=== PATIENT | female | born 1990 | race Two or more races ===

== ENCOUNTER 2017-04-06 18:58 | Emergency (ER) | payer OTHER ==
[~2017-04-06] VITALS: Ht 154.9 cm; Wt 81.6 kg
[2017-04-06] MEDS ORDERED: 0.9 % SODIUM CHLORIDE 10 ML DISP.SYRIN. IV PRN (19:15)
[2017-04-06] MEDS ORDERED: HYDROmorphone 2 MG/ML VIAL IV/SQ PRN (19:15)
--- NOTE | 2017-04-06 19:16 | PHYS DOC ---
Past Medical History Past Medical History: No Pertinent History Past Surgical History: Appendectomy Alcohol Use: None Drug Use: None Adult General Chief Complaint Chief Complaint: CHEST PAIN HPI HPI She is a pleasant 26-year-old otherwise healthy female with a 2 day history of chest pain. She describes the chest pain is intermittent in her left chest central chest with radiation to the left jaw and arm. Over the course of last 12 hours as got progressively worse and now constant all day. It does radiate to the again left jaw left shoulder and left arm is worse with taking deep breaths and movement of her left shoulder. She denies any trauma, fevers, chills , URI symptoms, cough, shortness of breath other than when moving her chest wall hurts. Patient has had similar symptoms in the past but no specific disease process was found a cause. Patient denies any travel outside the country , denies any other PE risk factors, denies any numbness and tingling to her chest only her left hand. Patient is on no medications of course. Patient has no history of surgeries recently. She has no complaint of lower extremity edema or pain. 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 She denies any sick contacts at home. The chest pain and now is 8 of 10 constant with no nausea no, no vomiting, no diarrhea, no rash or change in skin color. Differential diagnosis for chest pain: Pericarditis, myocarditis, endocarditis, pneumothorax, pneumonia, aortic dissection, esophageal spasm, esophagitis, peptic ulcer disease, acute coronary syndrome, mediastinitis, Boerhaave syndrome , musculoskeletal chest wall pain, costochondritis, intercostal strain, rib fracture, pulmonary contusion, pneumonitis, pleural effusion, pericardial effusion, pericardial tamponode, and pleurisy. Arrival read by me 1903 on April 06, 2017 demonstrates a P every QRS this is sinus rhythm with a heart rate of 76. IA interval of 146 which is normal, QRS of 80 which is normal, QTC of 425. Patient has a T-wave abnormality in the anterior leads V1 which may be a normal variant. She also has a nonspecific T- wave inversion in lead [address] segment T-wave changes consistent with acute cardiac ischemia. Review of Systems Review of Systems Constitutional: Denies fever or chills [] Eyes: Denies change in visual acuity, redness, or eye pain [] HENT: Denies nasal congestion or sore throat [] Respiratory: Denies cough or shortness of breath [] Cardiovascular: No additional information not addressed in HPI [] GI: Denies abdominal pain, nausea, vomiting, bloody stools or diarrhea [] : Denies dysuria or hematuria [] Musculoskeletal: Denies back pain or joint pain [] Integument: Denies rash or skin lesions [] Neurologic: Denies headache, focal weakness she does complain of some tingling to her left hand with the chest pains. Endocrine: Denies polyuria or polydipsia [] All other systems were reviewed and found to be within normal limits, except as documented in this note. Current Medications Current Medications Current Medications Medications (Trade) Dose Ordered Sig/Leilani Start Time Stop Time Status Last Admin Dose Admin Aspirin (Children'S Aspirin) 324 mg 1X ONCE 04/06/17 19:45 04/06/17 19:46 DC Hydromorphone HCl (Dilaudid) 1 mg PRN Q15MIN PRN 04/06/17 19:15 04/07/17 19:14 Lorazepam (Ativan) 1 mg 1X ONCE 04/06/17 19:45 04/06/17 19:46 DC Sodium Chloride (Normal Saline Flush) 10 ml QSHIFT PRN 04/06/17 19:15 Allergies Allergies Allergies Coded Allergies Type Severity Reaction Last Updated Verified No Known Drug Allergies 10/26/14 No Physical Exam Physical Exam Constitutional: Well developed, well nourished, patient is uncomfortable laying flat having difficulty breathing secondary to pain in her chest wall. HENT: Normocephalic, atraumatic, bilateral external ears normal, oropharynx moist, no oral exudates, nose normal. [] Eyes: PERRLA, EOMI, conjunctiva normal, no discharge. [] Neck: Normal range of motion, no tenderness, supple, no stridor. [] Cardiovascular:Heart rate regular rhythm, no murmur []a she has chest wall tenderness to palpation is reproducible on exam. She has no obvious signs of trauma, no rash no changes in skin composition or color. Lungs & Thorax: Bilateral breath sounds clear to auscultation [] Abdomen: Bowel sounds normal, soft, no tenderness, no masses, no pulsatile masses. [] Skin: Warm, dry, no erythema, no rash. [] Back: No tenderness, no CVA tenderness. [] Extremities: No tenderness, no cyanosis, no clubbing, ROM intact, no edema. [] Neurologic: Alert and oriented X 3, normal motor function, normal sensory function, no focal deficits noted. [] Psychologic: She is very anxious but is normal judgment normal affect.[] Current Patient Data Vital Signs Vital Signs Date Time Temp Pulse Resp B/P (MAP) Pulse Ox O2 Delivery O2 Flow Rate FiO2 04/06/17 19:12 98.5 77 20 107/61 (76) 100 Room Air 98.5 Lab Values Laboratory Tests Test 04/06/17 19:20 04/06/17 19:27 04/06/17 19:33 White Blood Count 10.7 x10^3/uL (4.0-11.0) Red Blood Count 4.45 x10^6/uL (3.50-5.40) Hemoglobin 13.2 g/dL (12.0-15.5) Hematocrit 39.2 % (36.0-47.0) Mean Corpuscular Volume 88 fL (79-100) Mean Corpuscular Hemoglobin 30 pg (25-35) Mean Corpuscular Hemoglobin Concent 34 g/dL (31-37) Red Cell Distribution Width 12.9 % (11.5-14.5) Platelet Count 282 x10^3/uL (140-400) Neutrophils (%) (Auto) 60 % (31-73) Lymphocytes (%) (Auto) 29 % (24-48) Monocytes (%) (Auto) 7 % (0-9) Eosinophils (%) (Auto) 4 % (0-3) H Basophils (%) (Auto) 1 % (0-3) Neutrophils # (Auto) 6.4 x10^3uL (1.8-7.7) Lymphocytes # (Auto) 3.1 x10^3/uL (1.0-4.8) Monocytes # (Auto) 0.7 x10^3/uL (0.0-1.1) Eosinophils # (Auto) 0.4 x10^3/uL (0.0-0.7) Basophils # (Auto) 0.1 x10^3/uL (0.0-0.2) Sodium Level 139 mmol/L (136-145) Potassium Level 4.0 mmol/L (3.5-5.1) Chloride Level 105 mmol/L (98-107) Carbon Dioxide Level 26 mmol/L (21-32) Anion Gap 8 (6-14) Blood Urea Nitrogen 19 mg/dL (7-20) Creatinine 0.9 mg/dL (0.6-1.0) Estimated GFR (Cockcroft-Gault) 75.1 Glucose Level 98 mg/dL (70-99) Calcium Level 8.8 mg/dL (8.5-10.1) Magnesium Level 1.8 mg/dL (1.8-2.4) Total Bilirubin 0.4 mg/dL (0.2-1.0) Direct Bilirubin 0.1 mg/dL (0.0-0.2) Aspartate Amino Transferase (AST) 22 U/L (15-37) Alanine Aminotransferase (ALT) 33 U/L (14-59) Alkaline Phosphatase 78 U/L (46-116) Creatine Kinase 124 U/L (26-192) Creatine Kinase MB (Mass) 0.7 ng/mL (0.0-3.6) Creatine Kinase MB Relative Index 0.6 % (0-4) Troponin I Quantitative < 0.017 ng/mL (0.000-0.055) KA-Yca-E-Type Natriuretic Peptide 36 pg/mL (0-124) Total Protein 7.8 g/dL (6.4-8.2) Albumin 3.6 g/dL (3.4-5.0) Lipase 124 U/L (73-393) Thyroid Stimulating Hormone (TSH) 2.779 uIU/mL (0.358-3.74) Urine Collection Type Clean catch Urine Color Yellow Urine Clarity Cloudy Urine pH 6.5 Urine Specific [place] 1.020 Urine Protein Negative mg/dL (NEG-TRACE) Urine Glucose (UA) Negative mg/dL (NEG) Urine Ketones (Stick) Negative mg/dL (NEG) Urine Blood Negative (NEG) Urine Nitrite Negative (NEG) Urine Bilirubin Negative (NEG) Urine Urobilinogen Dipstick 1.0 mg/dL (0.2 mg/dL) Urine Leukocyte Esterase Small (NEG) Urine RBC Occ /HPF (0-2) Urine WBC 1-4 /HPF (0-4) Urine Squamous Epithelial Cells Mod /LPF Urine Bacteria Few /HPF (0-FEW) Urine Mucus Slight /LPF POC Urine HCG, Qualitative Hcg negative (Negative) Laboratory Tests 04/06/17 19:20 Laboratory Tests 04/06/17 19:20 EKG EKG [] Radiology/Procedures Radiology/Procedures []Is single view chest x-ray completed at 7:34 PM read by me 04/06/2017 demonstrates no acute cardiopulmonary infiltrate, no cardiomegaly, no evidence of pneumothorax, no pneumonia, no pneumo mediastinum, no evidence of fractured rib. Course & Med Decision Making Course & Med Decision Making Pertinent Labs and Imaging studies reviewed. (See chart for details) []Patient presents with continuous chest wall pain for the last 24 hours.Differential diagnosis for chest pain: Pericarditis, myocarditis, endocarditis, pneumothorax, pneumonia, aortic dissection, esophageal spasm, esophagitis, peptic ulcer disease, acute coronary syndrome, mediastinitis, Boerhaave syndrome, musculoskeletal chest wall pain, costochondritis, intercostal strain, rib fracture, pulmonary contusion, pneumonitis, pleural effusion, pericardial effusion, pericardial tamponode, and pleurisy. Concert upon arrival Criteria: Age < than 50 years Heart rate < 100 Oxygen saturation > 95% No hemoptysis No estrogen use No prior DVT or PE No unilateral leg swelling No surgery or trauma requiring hospitalization within the prior 4 weeks Based on these findings patient has no risk for pulmonary embolism we will set up for a d-dimer as she is low risk a negative d-dimer and negative per her score essentially rule out the presence of PE. The interim patient be given aspirin, fluids antiemetics and pain meds as well as a thorough screening for other causes of cardiac injury. And chest pain Patient's CBC, troponin, proBNP, no evidence of metabolic panel, are all within normal limits, as is lipase is normal, patient's d-dimer is less than 0.28 which is below normal limits. Patient's chest x-ray is normal according to me as well as a EKG that does not demonstrate any acute coronary ischemia. Given duration of symptoms I'm comfortable sending the patient is low risk History: As calculated at the end of the patient's evaluation and she still score is about a 0. We've that she is low risk and be discharged home with follow-up with PCP and referral to cardiology as an outpatient to get risk stratification completed Highly suspicious 2 points moderately suspicious 1. slightly suspicious 0 point EKG: ST segment depression 2. nonspecific repolarization disturbance 1. normal 0 point Age: Greater than 65 2 points, 65-45 1., less than 45 years old 0 points Risk factors:> 3 risk factors 2 points, 1-2 risk factors one point, no risk factors 0 point Troponin: > 2 times normal 2 points, 1-2 times normal 1., normal limits 0 point Total score: Score % pts MACE/n MACE Policy 0-3 32% 1.9% 0.05% Discharge 4-6 51% 413/3136 13% 1.3% Observation Risk management 7-10 17% 518/[id number] 50% 2.8% Observation Treatment, CAG Dragon Disclaimer Dragon Disclaimer This electronic medical record was generated, in whole or in part, using a voice recognition dictation system. Departure Departure Impression: Primary Impression: Chest pain in adult Disposition: 01 HOME, SELF-CARE Condition: IMPROVED Referrals: KAY COLON MD (PCP) Patient Instructions: Chest Pain (Nonspecific) Additional Instructions: My discharge plan Although you have low risk chest pain you May still have heart disease despite having an apparent negative workup today. I would advise that you follow-up with your primary care doctor this week to arrange follow-up with her vice president of product marketing. The vice president of product marketing will help stratify your risk for heart injury in the future. Follow up: In addition patient is asked to followup with their primary doctor, within a week for followup examination and to address patient's ongoing medical conditions. Because patient does not have a regular medical doctor, the [facility] Resource Sheet will be provided to establish care primary care. Patient is advised that in the Emergency Department primary complaints are addressed and only in light of known signs and symptoms. Patient should return immediately to the emergency department if new signs and symptoms develop or patient's condition worsens in any way. At time of discharge patient was in stable condition and had verbalized understanding of the discharge instructions. Scripts Naproxen (NAPROSYN) 500 Mg Tablet 1 TAB PO BID, #14 TAB 1 Refill Prov: HIMANSHU WILKINSON MD 04/06/17 Hydrocodone Bit/Acetaminophen (HYDROCODONE-APAP 5-325 ) 1 Each Tablet 1-2 TAB PO PRN Q6HRS Y for PAIN for 5 Days, #10 TAB 0 Refills Prov: HIMANSHU WILKINSON MD 04/06/17 HIMANSHU WILKINSON MD Apr 06, 2017 19:16
[2017-04-06 19:26] LABS: BASO # 0.1 x10^3/uL (0.0-0.2); BASO % 1 % (0-3); EOS % 4 % (0-3); HEMATOCRIT 39.2 % (36.0-47.0); HEMOGLOBIN 13.2 g/dL (12.0-15.5); LYMPH # 3.1 x10^3/uL (1.0-4.8); LYMPH % 29 % (24-48); MEAN CORPUSCULAR HEMOGLOBIN 30 pg (25-35); MEAN CORPUSCULAR HGB CONC 34 g/dL (31-37); MEAN CORPUSCULAR VOLUME 88 fL (79-100); MONO % 7 % (0-9); NEUT % 60 % (31-73); PLATELET COUNT 282 x10^3/uL (140-400); RED BLOOD COUNT 4.45 x10^6/uL (3.50-5.40); RED CELL DISTRIBUTION WIDTH 12.9 % (11.5-14.5); WHITE BLOOD COUNT 10.7 x10^3/uL (4.0-11.0)
[2017-04-06 19:43] LABS: CALCIUM 8.8 mg/dL (8.5-10.1); CREATININE 0.9 mg/dL (0.6-1.0); GFR 75.1
[2017-04-06 19:44] LABS: BILIRUBIN,URINE NEGATIVE (NEG); GLUCOSE,URINE NEGATIVE (NEG); NITRITE,URINE NEGATIVE (NEG); PH,URINE 6.5; PROTEIN,URINE NEGATIVE (NEG-TRACE)
[2017-04-06] MEDS ORDERED: IV NORMAL SALINE 1000ML BAG 1,000 ML IV SCH (19:45)
[2017-04-06] MEDS ORDERED: ASPIRIN CHEWABLE 81 MG TABLET. PO ONE (19:45)
[2017-04-06 19:49] LABS: ALBUMIN 3.6 g/dL (3.4-5.0); DIRECT BILIRUBIN 0.1 mg/dL (0.0-0.2); MAGNESIUM 1.8 mg/dL (1.8-2.4); TOTAL BILIRUBIN 0.4 mg/dL (0.2-1.0); TOTAL PROTEIN 7.8 g/dL (6.4-8.2)
[2017-04-06 19:49] LABS: BACTERIA,URINE FEW /HPF (0-FEW); RBC,URINE OCC /HPF (0-2)
[2017-04-06 19:50] LABS: SQUAMOUS EPITHELIAL CELL,UR MOD /LPF
[2017-04-06 19:57] LABS: CKMB MASS 0.7 ng/mL (0.0-3.6)
[2017-04-06 20:00] VITALS: BP 128/79
[2017-04-06] MEDS ORDERED: HYDR-2758 PO (20:14)
[2017-04-06] MEDS ORDERED: NAPR-683 PO (20:14)
--- NOTE | 2017-04-07 06:30 | EKG ---
[facility] [address] [place] [address] Test Date: 2017-04-06 Test Time: 19:03:27 Pat Name: WILLA MACEDO Department: Room: Gender: F [employer] Specialist: : [id number] Requested By: HIMANSHU WILKINSON Order Number: [id number] Reading MD: Measurements Intervals [place] Rate: 76 P: 180 [place]: 146 QRS: 168 QRSD: 98 T: 153 QT: 374 QTc: 425 Interpretive Statements SINUS RHYTHM ABNORMAL RIGHT AXIS DEVIATION CONSIDER RIGHT VENTRICULAR HYPERTROPHY T ABNORMALITY IN HIGH LATERAL LEADS ABNORMAL ECG RI6.01 No previous ECG available for comparison
--- NOTE | 2017-04-07 08:35 | RAD ---
Portable chest, 04/06/2017: History: Chest pain Comparison is made to a study from 11/10/2011. The heart size and pulmonary vascularity are normal. The lungs are clear. There is no evidence of pleural fluid. IMPRESSION: No acute cardiopulmonary abnormality is detected.
== END 2017-04-06 20:38 | disposition home or self-care (01) ==
LOC: ER 18:58
DX: R07.89 Other chest pain (principal); R68.84 Jaw pain; M79.602 Pain in left arm; R20.2 Paresthesia of skin; Z90.49 Acquired absence of other specified parts of digestive tract; Z79.82 Long term (current) use of aspirin
CPT/HCPCS: 36415; 71010; 80048; 80076; 81001; 81025; 82553; 83690; 83735; 83880; 84443; 84484; 85025; 85379; 87086; 93005; 96361; 96374; 96375; 99285; J1170; J2060; J7030

== ENCOUNTER 2018-02-14 10:25 | Emergency (ER) | payer MEDICAID, OTHER ==
[~2018-02-14] VITALS: Ht 157.5 cm; Wt 77.1 kg
[~2018-02-14 10:25] MED LIST: HYDR-2758 PO; NAPR-683 PO
[2018-02-14 10:30] VITALS: BP 107/79
[2018-02-14 11:15] LABS: BASO % 1 % (0-3); EOS # 0.2 x10^3/uL (0.0-0.7); EOS % 2 % (0-3); HEMATOCRIT 39.3 % (36.0-47.0); HEMOGLOBIN 13.5 g/dL (12.0-15.5); LYMPH # 1.9 x10^3/uL (1.0-4.8); LYMPH % 27 % (24-48); MEAN CORPUSCULAR HEMOGLOBIN 30 pg (25-35); MEAN CORPUSCULAR HGB CONC 34 g/dL (31-37); MEAN CORPUSCULAR VOLUME 86 fL (79-100); MONO # 0.5 x10^3/uL (0.0-1.1); MONO % 6 % (0-9); NEUT # 4.6 x10^3uL (1.8-7.7); NEUT % 64 % (31-73); PLATELET COUNT 293 x10^3/uL (140-400); RED BLOOD COUNT 4.54 x10^6/uL (3.50-5.40); RED CELL DISTRIBUTION WIDTH 12.9 % (11.5-14.5); WHITE BLOOD COUNT 7.2 x10^3/uL (4.0-11.0)
[2018-02-14 11:16] LABS: BILIRUBIN,URINE NEGATIVE (NEG); CLARITY,URINE CLEAR; COLOR,URINE YELLOW; NITRITE,URINE NEGATIVE (NEG); PH,URINE 5.5; PROTEIN,URINE 30 mg/dL (NEG-TRACE); UROBILINOGEN,URINE 0.2 mg/dL (0.2 mg/dL)
[2018-02-14 11:30] LABS: CALCIUM 9.1 mg/dL (8.5-10.1); CREATININE 0.8 mg/dL (0.6-1.0); GFR 85.4; POTASSIUM 3.8 mmol/L (3.5-5.1)
[2018-02-14 11:35] LABS: ALBUMIN 3.3 g/dL (3.4-5.0); ALBUMIN/GLOBULIN RATIO 0.7 (1.0-1.7); TOTAL BILIRUBIN 0.7 mg/dL (0.2-1.0); TOTAL PROTEIN 7.9 g/dL (6.4-8.2)
[2018-02-14 11:36] LABS: RBC,URINE OCC /HPF (0-2)
[2018-02-14 11:37] LABS: BACTERIA,URINE MODERATE /HPF (0-FEW); SQUAMOUS EPITHELIAL CELL,UR MANY /LPF
[2018-02-14] MEDS ORDERED: CIPR500T94 PO (12:09)
--- NOTE | 2018-02-14 12:13 | PHYS DOC ---
Past Medical History Past Medical History: No Pertinent History Past Surgical History: Appendectomy Alcohol Use: None Drug Use: None Adult General Chief Complaint Chief Complaint: VAGINAL PROBLEM HPI HPI Patient is a 27 year old female who presents with mild pelvic pain with one incidence of some bloody discharge when she has wiped after urination. The patient states that she has an odor to her urine. She is . She denies fever, nausea or vomiting. She is having urgency and frequency with urination. Review of Systems Review of Systems Constitutional: Denies fever or chills [] Respiratory: Denies cough or shortness of breath [] Cardiovascular: No additional information not addressed in HPI [] GI: Denies abdominal pain, nausea, vomiting, bloody stools or diarrhea [] : See history of present illness Musculoskeletal: Denies back pain or joint pain [] Integument: Denies rash or skin lesions [] Neurologic: Denies headache, focal weakness or sensory changes [] Endocrine: Denies polyuria or polydipsia [] All other systems were reviewed and found to be within normal limits, except as documented in this note. Allergies Allergies Allergies Coded Allergies Type Severity Reaction Last Updated Verified No Known Drug Allergies 10/26/14 No Physical Exam Physical Exam Constitutional: Well developed, well nourished, no acute distress, non-toxic appearance. [] Neck: Normal range of motion, no tenderness, supple, no stridor. [] Cardiovascular:Heart rate regular rhythm, no murmur [] Lungs & Thorax: Bilateral breath sounds clear to auscultation [] Abdomen: Bowel sounds normal, soft, no tenderness, no masses, no pulsatile masses. [] Skin: Warm, dry, no erythema, no rash. [] Back: No tenderness, no CVA tenderness. [] Neurologic: Alert and oriented X 3, normal motor function, normal sensory function, no focal deficits noted. [] Psychologic: Affect normal, judgement normal, mood normal. [] Current Patient Data Vital Signs Vital Signs Date Time Temp Pulse Resp B/P (MAP) Pulse Ox O2 Delivery O2 Flow Rate FiO2 02/14/18 12:30 72 96 02/14/18 10:30 98.9 12 107/79 (88) Room Air 98.9 Lab Values Laboratory Tests Test 02/14/18 10:37 02/14/18 10:40 10/13/18 11:05 Urine Collection Type Void Urine Color Yellow Urine Clarity Clear Urine pH 5.5 Urine Specific [place] >=1.030 Urine Protein 30 mg/dL (NEG-TRACE) Urine Glucose (UA) Negative mg/dL (NEG) Urine Ketones (Stick) Negative mg/dL (NEG) Urine Blood Trace (NEG) Urine Nitrite Negative (NEG) Urine Bilirubin Negative (NEG) Urine Urobilinogen Dipstick 0.2 mg/dL (0.2 mg/dL) Urine Leukocyte Esterase Small (NEG) Urine RBC Occ /HPF (0-2) Urine WBC 11-20 /HPF (0-4) Urine Squamous Epithelial Cells Many /LPF Urine Bacteria Moderate /HPF (0-FEW) Urine Mucus Marked /LPF POC Urine HCG, Qualitative Hcg negative (Negative) White Blood Count 7.2 x10^3/uL (4.0-11.0) Red Blood Count 4.54 x10^6/uL (3.50-5.40) Hemoglobin 13.5 g/dL (12.0-15.5) Hematocrit 39.3 % (36.0-47.0) Mean Corpuscular Volume 86 fL (79-100) Mean Corpuscular Hemoglobin 30 pg (25-35) Mean Corpuscular Hemoglobin Concent 34 g/dL (31-37) Red Cell Distribution Width 12.9 % (11.5-14.5) Platelet Count 293 x10^3/uL (140-400) Neutrophils (%) (Auto) 64 % (31-73) Lymphocytes (%) (Auto) 27 % (24-48) Monocytes (%) (Auto) 6 % (0-9) Eosinophils (%) (Auto) 2 % (0-3) Basophils (%) (Auto) 1 % (0-3) Neutrophils # (Auto) 4.6 x10^3uL (1.8-7.7) Lymphocytes # (Auto) 1.9 x10^3/uL (1.0-4.8) Monocytes # (Auto) 0.5 x10^3/uL (0.0-1.1) Eosinophils # (Auto) 0.2 x10^3/uL (0.0-0.7) Basophils # (Auto) 0.0 x10^3/uL (0.0-0.2) Maternal Serum HCG Beta Subunit < 1 mIU/mL (0-5) Sodium Level 141 mmol/L (136-145) Potassium Level 3.8 mmol/L (3.5-5.1) Chloride Level 105 mmol/L (98-107) Carbon Dioxide Level 25 mmol/L (21-32) Anion Gap 11 (6-14) Blood Urea Nitrogen 13 mg/dL (7-20) Creatinine 0.8 mg/dL (0.6-1.0) Estimated GFR (Cockcroft-Gault) 85.4 BUN/Creatinine Ratio 16 (6-20) Glucose Level 101 mg/dL (70-99) H Calcium Level 9.1 mg/dL (8.5-10.1) Total Bilirubin 0.7 mg/dL (0.2-1.0) Aspartate Amino Transferase (AST) 29 U/L (15-37) Alanine Aminotransferase (ALT) 45 U/L (14-59) Alkaline Phosphatase 84 U/L (46-116) Total Protein 7.9 g/dL (6.4-8.2) Albumin 3.3 g/dL (3.4-5.0) L Albumin/Globulin Ratio 0.7 (1.0-1.7) L Laboratory Tests 02/14/18 11:05 Laboratory Tests 02/14/18 11:05 EKG EKG [] Radiology/Procedures Radiology/Procedures [] Course & Med Decision Making Course & Med Decision Making Pertinent Labs and Imaging studies reviewed. (See chart for details) [] Dragon Disclaimer Dragon Disclaimer This electronic medical record was generated, in whole or in part, using a voice recognition dictation system. Departure Departure Impression: Primary Impression: UTI (urinary tract infection) Disposition: 01 HOME, SELF-CARE Condition: STABLE Referrals: KAY COLON MD (PCP) Patient Instructions: Urinary Tract Infection Additional Instructions: Take the antibiotic as directed. Follow-up with your primary care provider for urine recheck in one week. If worsening return to the emergency department. Scripts Ciprofloxacin Hcl (CIPRO) 500 Mg Tablet 1 TAB PO BID, #14 TAB Prov: MALAIKA SIMMONS APRN 02/14/18 MALAIKA SIMMONS APRN Feb 14, 2018 12:12
== END 2018-02-14 12:45 | disposition home or self-care (01) ==
LOC: ER 10:25
DX: N39.0 Urinary tract infection, site not specified (principal); Z90.89 Acquired absence of other organs
CPT/HCPCS: 36415; 80053; 81001; 81025; 84702; 85025; 87086; 99284

== ENCOUNTER 2018-03-16 13:59 | Emergency (ER) | payer OTHER ==
[~2018-03-16] VITALS: Ht 152.4 cm; Wt 86.2 kg
[~2018-03-16 13:59] MED LIST changes: +CIPR500T94 PO
[2018-03-16 15:00] VITALS: BP 138/82
[2018-03-16 15:04] LABS: BILIRUBIN,URINE NEGATIVE (NEG); CLARITY,URINE CLOUDY; COLOR,URINE YELLOW; NITRITE,URINE NEGATIVE (NEG); PH,URINE 5.5; PROTEIN,URINE 30 mg/dL (NEG-TRACE); UROBILINOGEN,URINE 0.2 mg/dL (0.2 mg/dL)
[2018-03-16 15:19] LABS: SQUAMOUS EPITHELIAL CELL,UR FEW /LPF
[2018-03-16 15:20] LABS: BACTERIA,URINE 0 /HPF (0-FEW); RBC,URINE >40 /HPF (0-2)
--- NOTE | 2018-03-16 16:29 | PHYS DOC ---
Past Medical History Past Medical History: No Pertinent History Past Surgical History: Appendectomy Alcohol Use: None Drug Use: None Adult General Chief Complaint Chief Complaint: VAGINAL BLEEDING HPI HPI Patient is a 27 year old female who presents with vaginal bleeding. The patient states she normally has irregular menstrual cycles that last about 5 days. For the last 2 months, she has had some intermittent irregular bleeding which she describes to be a small amount. She came to the ER today because she did have sexual intercourse with her night before last and had onset of bleeding following intercourse. Earlier today, she perceived that she was urinating into the stool but states she saw a large amount of blood and found it to be coming from her vagina. No fever or chills. No flank pain. No urinary symptoms. No irregular vaginal discharge. Patient has been for many years to the same person and does not have STD concerns. She states she has been trying to conceive for the last 2 months but has been unsuccessful so far. Review of Systems Review of Systems Constitutional: Denies fever or chills Eyes: Denies change in visual acuity HENT: Denies nasal congestion o Respiratory: Denies cough or shortness of breath Cardiovascular: No additional information GI: Denies abdominal pain, nausea : Denies dysuria Musculoskeletal: Denies back pain Integument: Denies rash Neurologic: Denies headache Endocrine: Denies polyuria All other systems were reviewed and found to be within normal limits, except as documented in this note. Allergies Allergies Allergies Coded Allergies Type Severity Reaction Last Updated Verified No Known Drug Allergies 10/26/14 No Physical Exam Physical Exam Constitutional: Well developed, well nourished, no acute distress, non-toxic appearance HENT: Normocephalic, atraumatic, bilateral external ears normal, oropharynx moist Eyes: PERRLA, EOMI, conjunctiva normal Neck: Normal range of motion, no tenderness Cardiovascular:Heart rate regular rhythm, no murmur Lungs & Thorax: Bilateral breath sounds clear to auscultation Abdomen: Bowel sounds normal, soft, no tenderness Skin: Warm, dry, no erythema, no rash Back: No tenderness, no CVA tenderness Neurologic: Alert and oriented X 3 Psychologic: Affect normal Pelvic exam: Normal external female genitalia. Vaginal mucosa is moist and does not appear inflamed. Cervical os is closed with a small amount of dark blood emanating from the os. There is a scant amount of old blood in the vault. No cervical motion tenderness. No adnexal tenderness or masses are palpated. no significant pelvic pain. Current Patient Data Vital Signs Vital Signs Date Time Temp Pulse Resp B/P (MAP) Pulse Ox O2 Delivery O2 Flow Rate FiO2 03/16/18 15:00 98.2 89 16 138/82 (100) 99 Room Air 98.2 Lab Values Laboratory Tests Test 03/16/18 14:56 03/16/18 14:59 Urine Collection Type Unknown Urine Color Yellow Urine Clarity Cloudy Urine pH 5.5 Urine Specific [place] 1.025 Urine Protein 30 mg/dL (NEG-TRACE) Urine Glucose (UA) Negative mg/dL (NEG) Urine Ketones (Stick) Negative mg/dL (NEG) Urine Blood Large (NEG) Urine Nitrite Negative (NEG) Urine Bilirubin Negative (NEG) Urine Urobilinogen Dipstick 0.2 mg/dL (0.2 mg/dL) Urine Leukocyte Esterase Small (NEG) Urine RBC >40 /HPF (0-2) Urine WBC 1-4 /HPF (0-4) Urine Squamous Epithelial Cells Few /LPF Urine Bacteria 0 /HPF (0-FEW) POC Urine HCG, Qualitative Hcg negative (Negative) Microbiology 03/16/18 Wet Prep - Final, Complete EKG EKG [] Radiology/Procedures Radiology/Procedures [] Course & Med Decision Making Course & Med Decision Making Pertinent Labs and Imaging studies reviewed. (See chart for details) Patient was evaluated in the emergency department for irregular vaginal bleeding. Her pelvic exam was unremarkable other than a small amount of blood. Her wet mount was also unremarkable. Gonorrhea and chlamydia testing were sent to the lab. The examination was accompanied by female registered nurse. Urine was not infected. Patient was discharged to home. The [employer] phone was used for interpretive services. Prior to discharge, all the patient's questions were answered. All results were reviewed with her. She was satisfied with the plan of care. She was advised to follow-up with her primary care physician or return to the ER if she begins bleeding heavier, soaking more than 1 pad per hour for 3 consecutive hours. Dragon Disclaimer Dragon Disclaimer This electronic medical record was generated, in whole or in part, using a voice recognition dictation system. Departure Departure Impression: Primary Impression: Dysfunctional uterine bleeding Disposition: HOME, SELF-CARE Condition: GOOD Patient Instructions: Menorrhagia, [id number] ALCANTAR,SATNAM L DO Mar 16, 2018 16:29
[2018-03-17 23:12] LABS: GC PROBE Negative (Negative)
== END 2018-03-16 16:33 | disposition home or self-care (01) ==
LOC: ER 13:59
DX: N93.8 Other specified abnormal uterine and vaginal bleeding (principal); N92.6 Irregular menstruation, unspecified; Z90.89 Acquired absence of other organs
CPT/HCPCS: 81001; 81025; 87491; 87591; 99284; Q0111

== ENCOUNTER 2019-02-01 08:32 | Emergency (ER) | payer OTHER ==
[~2019-02-01] VITALS: Ht 165.1 cm; Wt 88.5 kg
[~2019-02-01 08:32] MED LIST changes: -HYDR-2758 PO; +HYDR-2761 PO
--- NOTE | 2019-02-01 08:58 | PHYS DOC ---
Past Medical History Past Medical History: No Pertinent History Past Surgical History: Appendectomy Alcohol Use: None Drug Use: None Adult General Chief Complaint Chief Complaint: VAGINAL BLEEDING HPI HPI Patient is a 28 year old female who presents with vaginal spotting this been ongoing since 5 AM this morning. The patient states that her last menstrual period was November 30 and she is presumed to be 8 weeks . The patient states that she has not yet seen an COMPOSITE WORKER however she has appointment scheduled for March 17. The patient is a [id number]. She denies abdominal pain but states she has been nauseous for the last couple of weeks. Review of Systems Review of Systems Constitutional: Denies fever or chills [] Eyes: Denies change in visual acuity, redness, or eye pain [] HENT: Denies nasal congestion or sore throat [] Respiratory: Denies cough or shortness of breath [] Cardiovascular: No additional information not addressed in HPI [] GI: Reports nausea. Denies abdominal pain, vomiting, bloody stools or diarrhea [] : Reports light vaginal spotting. Musculoskeletal: Denies back pain or joint pain [] Integument: Denies rash or skin lesions [] Neurologic: Denies headache, focal weakness or sensory changes [] Endocrine: Denies polyuria or polydipsia [] Complete systems were reviewed and found to be within normal limits, except as documented in this note. Current Medications Current Medications Current Medications Medications (Trade) Dose Ordered Sig/Leilani Start Time Stop Time Status Last Admin Dose Admin Doxylamine Succinate (Unisom) 12.5 mg 1X STAT 02/01/19 09:01 02/01/19 09:10 DC Pyridoxine HCl (Vitamin B-6) 12.5 mg 1X STAT 02/01/19 09:13 02/01/19 09:14 DC 02/01/19 09:59 12.5 MG Allergies Allergies Allergies Coded Allergies Type Severity Reaction Last Updated Verified No Known Drug Allergies 10/26/14 No Physical Exam Physical Exam Constitutional: Well developed, well nourished, no acute distress, non-toxic appearance. [] HENT: Normocephalic, atraumatic, bilateral external ears normal, oropharynx moist, no oral exudates, nose normal. [] Eyes: PERRLA, EOMI, conjunctiva normal, no discharge. [] Neck: Normal range of motion, no tenderness, supple, no stridor. [] Cardiovascular:Heart rate regular rhythm, no murmur [] Lungs & Thorax: Bilateral breath sounds clear to auscultation [] Abdomen: Bowel sounds normal, soft, no tenderness, no masses, no pulsatile masses. [] Skin: Warm, dry, no erythema, no rash. [] Back: No tenderness, no CVA tenderness. [] Extremities: No tenderness, no cyanosis, no clubbing, ROM intact, no edema. [] Neurologic: Alert and oriented X 3, normal motor function, normal sensory function, no focal deficits noted. [] Psychologic: Affect normal, judgement normal, mood normal. [] Pelvic Exam: External exam is normal and without rash, No CMT, OS is closed, yellowish discharge, no blood noted, uterus NTTP, No adnexal masses or tenderness noted Current Patient Data Vital Signs Vital Signs Date Time Temp Pulse Resp B/P (MAP) Pulse Ox O2 Delivery O2 Flow Rate FiO2 02/01/19 08:44 98.0 87 16 26/58 (47) 100 Room Air 98.0 Lab Values Laboratory Tests Test 02/01/19 08:40 02/01/19 09:30 Urine Collection Type Unknown Urine Color Yellow Urine Clarity Clear Urine pH 6.5 Urine Specific [place] 1.015 Urine Protein Negative mg/dL (NEG-TRACE) Urine Glucose (UA) Negative mg/dL (NEG) Urine Ketones (Stick) Negative mg/dL (NEG) Urine Blood Small (NEG) Urine Nitrite Negative (NEG) Urine Bilirubin Negative (NEG) Urine Urobilinogen Dipstick 0.2 mg/dL (0.2 mg/dL) Urine Leukocyte Esterase Small (NEG) Urine RBC 0 /HPF (0-2) Urine WBC 11-20 /HPF (0-4) Urine Squamous Epithelial Cells Mod /LPF Urine Bacteria Few /HPF (0-FEW) Urine Mucus Slight /LPF White Blood Count 8.2 x10^3/uL (4.0-11.0) Red Blood Count 4.41 x10^6/uL (3.50-5.40) Hemoglobin 12.8 g/dL (12.0-15.5) Hematocrit 37.8 % (36.0-47.0) Mean Corpuscular Volume 86 fL (79-100) Mean Corpuscular Hemoglobin 29 pg (25-35) Mean Corpuscular Hemoglobin Concent 34 g/dL (31-37) Red Cell Distribution Width 13.5 % (11.5-14.5) Platelet Count 258 x10^3/uL (140-400) Neutrophils (%) (Auto) 68 % (31-73) Lymphocytes (%) (Auto) 24 % (24-48) Monocytes (%) (Auto) 6 % (0-9) Eosinophils (%) (Auto) 2 % (0-3) Basophils (%) (Auto) 0 % (0-3) Neutrophils # (Auto) 5.5 x10^3/uL (1.8-7.7) Lymphocytes # (Auto) 2.0 x10^3/uL (1.0-4.8) Monocytes # (Auto) 0.5 x10^3/uL (0.0-1.1) Eosinophils # (Auto) 0.1 x10^3/uL (0.0-0.7) Basophils # (Auto) 0.0 x10^3/uL (0.0-0.2) Maternal Serum HCG Beta Subunit 45237 mIU/mL (0-5) H Sodium Level 139 mmol/L (136-145) Potassium Level 3.8 mmol/L (3.5-5.1) Chloride Level 104 mmol/L (98-107) Carbon Dioxide Level 22 mmol/L (21-32) Anion Gap 13 (6-14) Blood Urea Nitrogen 9 mg/dL (7-20) Creatinine 0.7 mg/dL (0.6-1.0) Estimated GFR (Cockcroft-Gault) 98.9 BUN/Creatinine Ratio 13 (6-20) Glucose Level 95 mg/dL (70-99) Calcium Level 9.1 mg/dL (8.5-10.1) Total Bilirubin 0.4 mg/dL (0.2-1.0) Aspartate Amino Transferase (AST) 20 U/L (15-37) Alanine Aminotransferase (ALT) 30 U/L (14-59) Alkaline Phosphatase 73 U/L (46-116) Total Protein 7.4 g/dL (6.4-8.2) Albumin 3.1 g/dL (3.4-5.0) L Albumin/Globulin Ratio 0.7 (1.0-1.7) L Laboratory Tests 02/01/19 09:30 Laboratory Tests 02/01/19 09:30 Microbiology 02/01/19 Wet Prep - Final, Complete EKG EKG [] Radiology/Procedures Radiology/Procedures [] Course & Med Decision Making Course & Med Decision Making Pertinent Labs and Imaging studies reviewed. (See chart for details) The patient is not having any abdominal pain but is presumed to be 8 weeks with nausea and light vaginal spotting. Will get labs, give nausea medication, pelvic with swabs, and get urine. Wet prep suggests bacterial vaginosis. Urine shows small leukocytes. Will treat for both. Other labs are unremarkable. Will place on Keflex and Flagyl for infections. Will write for pyridoxine and doxylmaine for morning sickness. Dragon Disclaimer Dragon Disclaimer This electronic medical record was generated, in whole or in part, using a voice recognition dictation system. Departure Departure Impression: Primary Impression: Bacterial vaginosis in Additional Impression: Urinary tract infection Disposition: HOME, SELF-CARE Condition: STABLE Referrals: KAY COLON MD (PCP) Patient Instructions: Bacterial Vaginosis, - Urinary Tract Infection Additional Instructions: Thank you for visiting [facility]. We appreciate you trusting us with your care. If any additional problems come up don't hesitate to return to visit us. Please follow up with your primary care provider so they can plan additional care if needed and know about the problem that you had. If symptoms worsen come back to the Emergency Department. Any concerning symptoms that start such as chest pain, shortness of air, weakness or numbness on one side of the body, running high fevers or any other concerning symptoms return to the ER. Please follow up with your COMPOSITE WORKER. Some of your results will not come back for 3 days. You will get a call if anything else is positive. You have been prescribed an antibiotic today to help fight your infection. Please take all of the antibiotic as directed. If after 48 hours the infection is not improving, please return for more care. If the infection worsens, return to ER for additional care. Scripts Doxylamine Succinate/Vit B6 (Doxylamine-Pyridoxine 10-10 mg) 1 Each Tablet. 1 EACH PO QID PRN for NAUSEA for 30 Days, #120 TAB.SR Prov: KAY MCGRAW OPTICAL TECHNICIAN 02/01/19 Metronidazole (METRONIDAZOLE) 500 Mg Tablet 1 TAB PO BID for 7 Days, #14 TAB Prov: KAY MCGRAW APRN 02/01/19 Cephalexin (KEFLEX) 500 Mg Capsule 1 CAP PO BID for 7 Days, #14 CAP Prov: KAY MCGRAW APRN 02/01/19 Problem Qualifiers Additional Impression: Urinary tract infection Urinary tract infection type: acute cystitis Hematuria presence: with hematuria Qualified Codes: N30.01 - Acute cystitis with hematuria KAY MCGRAW APRN Feb 01, 2019 08:58
[2019-02-01] MEDS ORDERED: DOXYLAMINE SUCCINATE 25 MG TABLET PO STA (09:01)
[2019-02-01] MEDS ORDERED: PYRIDOXINE 50 MG TABLET. PO STA ×2 (09:01→09:13)
[2019-02-01 09:26] LABS: BILIRUBIN,URINE NEGATIVE (NEG); CLARITY,URINE CLEAR; COLOR,URINE YELLOW; NITRITE,URINE NEGATIVE (NEG); PH,URINE 6.5; PROTEIN,URINE NEGATIVE (NEG-TRACE); UROBILINOGEN,URINE 0.2 mg/dL (0.2 mg/dL)
[2019-02-01 09:53] LABS: BACTERIA,URINE FEW /HPF (0-FEW); RBC,URINE 0 /HPF (0-2); SQUAMOUS EPITHELIAL CELL,UR MOD /LPF
[2019-02-01 09:59] LABS: CALCIUM 9.1 mg/dL (8.5-10.1); CREATININE 0.7 mg/dL (0.6-1.0); GFR 98.9; POTASSIUM 3.8 mmol/L (3.5-5.1)
[2019-02-01 10:05] LABS: ALBUMIN 3.1 g/dL (3.4-5.0); ALBUMIN/GLOBULIN RATIO 0.7 (1.0-1.7); TOTAL BILIRUBIN 0.4 mg/dL (0.2-1.0); TOTAL PROTEIN 7.4 g/dL (6.4-8.2)
[2019-02-01 10:18] LABS: BASO % 0 % (0-3); EOS # 0.1 x10^3/uL (0.0-0.7); EOS % 2 % (0-3); HEMATOCRIT 37.8 % (36.0-47.0); HEMOGLOBIN 12.8 g/dL (12.0-15.5); LYMPH % 24 % (24-48); MEAN CORPUSCULAR HEMOGLOBIN 29 pg (25-35); MEAN CORPUSCULAR HGB CONC 34 g/dL (31-37); MEAN CORPUSCULAR VOLUME 86 fL (79-100); MONO # 0.5 x10^3/uL (0.0-1.1); MONO % 6 % (0-9); NEUT # 5.5 x10^3/uL (1.8-7.7); NEUT % 68 % (31-73); PLATELET COUNT 258 x10^3/uL (140-400); RED BLOOD COUNT 4.41 x10^6/uL (3.50-5.40); RED CELL DISTRIBUTION WIDTH 13.5 % (11.5-14.5); WHITE BLOOD COUNT 8.2 x10^3/uL (4.0-11.0)
[2019-02-01] MEDS ORDERED: METR-34 PO (10:26)
[2019-02-01] MEDS ORDERED: CEPH-264 PO (10:26)
[2019-02-01] MEDS ORDERED: DOXY1TAB8 PO (10:58)
[2019-02-01 11:11] VITALS: BP 106/76
[2019-02-03 19:10] LABS: GC PROBE Negative (Negative)
== END 2019-02-01 11:30 | disposition home or self-care (01) ==
LOC: ER 08:32
DX: O23.11 Infections of bladder in pregnancy, first trimester (principal); O23.591 Infection of other part of genital tract in pregnancy, first trimester; Z3A.08 8 weeks gestation of pregnancy
CPT/HCPCS: 36415; 80053; 81001; 84702; 85025; 86900; 86901; 87086; 87491; 87591; 99284; Q0111

== ENCOUNTER 2019-03-05 08:38 | Emergency (ER) | payer OTHER ==
[~2019-03-05] VITALS: Ht 152.4 cm; Wt 88.5 kg
[~2019-03-05 08:38] MED LIST changes: +CEPH-264 PO; +DOXY1TAB8 PO; +METR-34 PO
[2019-03-05] MEDS ORDERED: IV NORMAL SALINE 1000ML BAG 1,000 ML IV SCH (09:43)
[2019-03-05 10:06] LABS: BASO % 0 % (0-3); EOS # 0.1 x10^3/uL (0.0-0.7); EOS % 1 % (0-3); HEMATOCRIT 37.2 % (36.0-47.0); HEMOGLOBIN 12.8 g/dL (12.0-15.5); LYMPH # 1.4 x10^3/uL (1.0-4.8); LYMPH % 13 % (24-48); MEAN CORPUSCULAR HEMOGLOBIN 30 pg (25-35); MEAN CORPUSCULAR HGB CONC 34 g/dL (31-37); MEAN CORPUSCULAR VOLUME 86 fL (79-100); MONO # 0.6 x10^3/uL (0.0-1.1); MONO % 6 % (0-9); NEUT % 79 % (31-73); PLATELET COUNT 234 x10^3/uL (140-400); RED BLOOD COUNT 4.34 x10^6/uL (3.50-5.40); RED CELL DISTRIBUTION WIDTH 13.6 % (11.5-14.5); WHITE BLOOD COUNT 10.2 x10^3/uL (4.0-11.0)
[2019-03-05 10:08] LABS: BILIRUBIN,URINE NEGATIVE (NEG); CLARITY,URINE CLEAR; COLOR,URINE AMBER; NITRITE,URINE NEGATIVE (NEG); PROTEIN,URINE 100 mg/dL (NEG-TRACE)
[2019-03-05 10:18] LABS: SQUAMOUS EPITHELIAL CELL,UR MOD /LPF
[2019-03-05 10:20] LABS: BACTERIA,URINE FEW /HPF (0-FEW); CALCIUM 9.1 mg/dL (8.5-10.1); CREATININE 0.6 mg/dL (0.6-1.0); GFR 118.2; POTASSIUM 3.6 mmol/L (3.5-5.1); RBC,URINE RARE /HPF (0-2)
[2019-03-05 10:21] LABS: HYALINE CASTS, URINE OCCASIONAL /HPF
[2019-03-05 10:26] LABS: ALBUMIN 2.9 g/dL (3.4-5.0); ALBUMIN/GLOBULIN RATIO 0.6 (1.0-1.7); TOTAL BILIRUBIN 0.5 mg/dL (0.2-1.0); TOTAL PROTEIN 7.4 g/dL (6.4-8.2)
--- NOTE | 2019-03-05 11:00 | RAD ---
PREG 1ST TRIMESTER, ABDOMEN LTD History: Upper abdominal pain. Comparison: None. Technique: Transabdominal ultrasound images are obtained of the right upper quadrant and pelvis OB ultrasound. Findings: Visualized pancreas is not well seen due to overlying bowel gas. Liver is increased in echogenicity. Right hepatic lobe measures 17.7 cm. Portal flow is hepatopedal. Gallbladder has an unremarkable appearance. Common bile duct caliber is normal measuring 2.1 mm in diameter. The right kidney measures 11.1 x 5.4 x 4.6 cm in length and is without evidence of obstruction or stone. Visualized portions of the aorta and IVC have normal caliber. There is a single intrauterine gestation. Cephalic positioning. The placenta is anterior in location without evidence of placental previa. Biometrical data is as follows: BPD = 2.3 cm, with a corresponding gestational age of 13 weeks 6 days. HC = 9.1 cm, with a corresponding gestational age of 14 weeks 1 days. AC = 6.6 cm, with a corresponding gestational age of 13 weeks 2 days. FL = 1.2 cm, with a corresponding gestational age of 13 weeks 4 days. Ratio of head circumference to abdominal circumference is 1.37. Overall, the estimated sonographic gestational age is 13 weeks 5 days. for an estimated date of delivery of September 05, 2019. The estimated heart rate is 147 beats per minute. Limited evaluation of the fetus. The stomach was visualized. Cervical length 5.7 cm. Maternal left ovarian cyst measures 3.2 x 2.8 cm. Maternal right ovary appears normal. IMPRESSION: Abdominal ultrasound: 1. Increased hepatic echotexture, may indicate steatosis. 2. Otherwise, unremarkable upper abdominal ultrasound. OB pelvic ultrasound: 1. Intrauterine gestational age 13 weeks 5 days with heart rate 147 bpm. Recommend routine second trimester survey at the appropriate time. 2. Left ovarian cyst. Electronically signed by: Hawk Barry DO (03/05/2019 10:57 AM) [facility]
--- NOTE | 2019-03-05 11:06 | PHYS DOC ---
Past Medical History Past Medical History: No Pertinent History Past Surgical History: Appendectomy Alcohol Use: None Drug Use: None Adult General Chief Complaint Chief Complaint: HEADACHE HPI HPI Patient is a 28 year old non-Tajik speaking female who presents with complaining of headache and abdominal pain. Patient is at 13 weeks of gestation and complaining of frontal headache since yesterday as a constant pain with nasal congestion and mild cough and sore throat without fever and chills and neck pain. Patient also complaining of upper abdominal pain with nausea without urinary symptoms, vaginal bleeding or discharge, contractured, patient denies history of migraine headache and head injury. She rated her pain 7/10. Review of Systems Review of Systems Constitutional: Denies fever or chills [] Eyes: Denies change in visual acuity, redness, or eye pain [] HENT: Force nasal congestion and sore throat and cough[] Respiratory: Denies shortness of breath [] Cardiovascular: No additional information not addressed in HPI [] GI: Reports abdominal pain, nausea, denies vomiting, bloody stools or diarrhea [] : Denies dysuria or hematuria [] Musculoskeletal: Denies back pain or joint pain [] Integument: Denies rash or skin lesions [] Neurologic: Denies headache, focal weakness or sensory changes [] Endocrine: Denies polyuria or polydipsia [] All other systems were reviewed and found to be within normal limits, except as documented in this note. Current Medications Current Medications Current Medications Medications (Trade) Dose Ordered Sig/Leilani Start Time Stop Time Status Last Admin Dose Admin Acetaminophen (Tylenol) 1,000 mg 1X ONCE 03/05/19 11:15 03/05/19 11:16 DC 03/05/19 11:24 1,000 MG Sodium Chloride 1,000 ml @ 1,000 mls/hr Q1H 03/05/19 09:43 03/05/19 10:42 DC 03/05/19 10:13 1,000 MLS/HR Allergies Allergies Allergies Coded Allergies Type Severity Reaction Last Updated Verified No Known Drug Allergies 10/26/14 No Physical Exam Physical Exam Constitutional: Well developed, well nourished, mild distress, non-toxic appearance. [] HENT: Normocephalic, atraumatic, bilateral external ears normal, oropharynx moist, no oral exudates, nasal congestion, frontal sinus tenderness. [] Eyes: PERRLA, EOMI, conjunctiva normal, no discharge. [] Neck: Normal range of motion, no tenderness, supple, no stridor. [] Cardiovascular:Heart rate regular rhythm, no murmur [] Lungs & Thorax: Bilateral breath sounds clear to auscultation [] Abdomen: Bowel sounds normal, soft, no tenderness, no masses, no pulsatile masses. [] Skin: Warm, dry, no erythema, no rash. [] Back: No tenderness, no CVA tenderness. [] Extremities: No tenderness, no cyanosis, no clubbing, ROM intact, no edema. [] Neurologic: Alert and oriented X 3, normal motor function, normal sensory function, no focal deficits noted. [] Psychologic: Affect normal, judgement normal, mood normal. [] Current Patient Data Vital Signs Vital Signs Date Time Temp Pulse Resp B/P (MAP) Pulse Ox O2 Delivery O2 Flow Rate FiO2 03/05/19 12:00 76 16 99 03/05/19 09:23 98.6 146/85 (105) Room Air 98.6 Lab Values Laboratory Tests Test 03/05/19 09:55 White Blood Count 10.2 x10^3/uL (4.0-11.0) Red Blood Count 4.34 x10^6/uL (3.50-5.40) Hemoglobin 12.8 g/dL (12.0-15.5) Hematocrit 37.2 % (36.0-47.0) Mean Corpuscular Volume 86 fL (79-100) Mean Corpuscular Hemoglobin 30 pg (25-35) Mean Corpuscular Hemoglobin Concent 34 g/dL (31-37) Red Cell Distribution Width 13.6 % (11.5-14.5) Platelet Count 234 x10^3/uL (140-400) Neutrophils (%) (Auto) 79 % (31-73) H Lymphocytes (%) (Auto) 13 % (24-48) L Monocytes (%) (Auto) 6 % (0-9) Eosinophils (%) (Auto) 1 % (0-3) Basophils (%) (Auto) 0 % (0-3) Neutrophils # (Auto) 8.0 x10^3/uL (1.8-7.7) H Lymphocytes # (Auto) 1.4 x10^3/uL (1.0-4.8) Monocytes # (Auto) 0.6 x10^3/uL (0.0-1.1) Eosinophils # (Auto) 0.1 x10^3/uL (0.0-0.7) Basophils # (Auto) 0.0 x10^3/uL (0.0-0.2) Urine Collection Type Void Urine Color Angela Urine Clarity Clear Urine pH 7.0 Urine Specific [place] 1.025 Urine Protein 100 mg/dL (NEG-TRACE) Urine Glucose (UA) Negative mg/dL (NEG) Urine Ketones (Stick) Negative mg/dL (NEG) Urine Blood Negative (NEG) Urine Nitrite Negative (NEG) Urine Bilirubin Negative (NEG) Urine Urobilinogen Dipstick 1.0 mg/dL (0.2 mg/dL) Urine Leukocyte Esterase Negative (NEG) Urine RBC Rare /HPF (0-2) Urine WBC 1-4 /HPF (0-4) Urine Squamous Epithelial Cells Mod /LPF Urine Bacteria Few /HPF (0-FEW) Urine Hyaline Casts Occasional /HPF Urine Mucus Mod /LPF Sodium Level 139 mmol/L (136-145) Potassium Level 3.6 mmol/L (3.5-5.1) Chloride Level 105 mmol/L (98-107) Carbon Dioxide Level 24 mmol/L (21-32) Anion Gap 10 (6-14) Blood Urea Nitrogen 9 mg/dL (7-20) Creatinine 0.6 mg/dL (0.6-1.0) Estimated GFR (Cockcroft-Gault) 118.2 BUN/Creatinine Ratio 15 (6-20) Glucose Level 87 mg/dL (70-99) Calcium Level 9.1 mg/dL (8.5-10.1) Total Bilirubin 0.5 mg/dL (0.2-1.0) Aspartate Amino Transferase (AST) 18 U/L (15-37) Alanine Aminotransferase (ALT) 18 U/L (14-59) Alkaline Phosphatase 61 U/L (46-116) Total Protein 7.4 g/dL (6.4-8.2) Albumin 2.9 g/dL (3.4-5.0) L Albumin/Globulin Ratio 0.6 (1.0-1.7) L Lipase 110 U/L (73-393) Laboratory Tests 03/05/19 09:55 Laboratory Tests 03/05/19 09:55 EKG EKG [] Radiology/Procedures Radiology/Procedures [][facility] [address] [place] [address] IMAGING REPORT Signed PATIENT: WILLA MACEDO MACCOUNT: [id number] : 1990 LOCATION: ER AGE: 28 SEX: F EXAM STATUS: REG ER ORD. PHYSICIAN: TRINA DEXTER MD REASON: upper abdominal pain PROCEDURE: ABDOMEN LTD PREG 1ST TRIMESTER, ABDOMEN LTD History: Upper abdominal pain. Comparison: None. Technique: Transabdominal ultrasound images are obtained of the right upper quadrant and pelvis OB ultrasound. Findings: Visualized pancreas is not well seen due to overlying bowel gas. Liver is increased in echogenicity. Right hepatic lobe measures 17.7 cm. Portal flow is hepatopedal. Gallbladder has an unremarkable appearance. Common bile duct caliber is normal measuring 2.1 mm in diameter. The right kidney measures 11.1 x 5.4 x 4.6 cm in length and is without evidence of obstruction or stone. Visualized portions of the aorta and IVC have normal caliber. There is a single intrauterine gestation. Cephalic positioning. The placenta is anterior in location without evidence of placental previa. Biometrical data is as follows: BPD = 2.3 cm, with a corresponding gestational age of 13 weeks 6 days. HC = 9.1 cm, with a corresponding gestational age of 14 weeks 1 days. AC = 6.6 cm, with a corresponding gestational age of 13 weeks 2 days. FL = 1.2 cm, with a corresponding gestational age of 13 weeks 4 days. Ratio of head circumference to abdominal circumference is 1.37. Overall, the estimated sonographic gestational age is 13 weeks 5 days. for an estimated date of delivery of September 05, 2019. The estimated heart rate is 147 beats per minute. Limited evaluation of the fetus. The stomach was visualized. Cervical length 5.7 cm. Maternal left ovarian cyst measures 3.2 x 2.8 cm. Maternal right ovary appears normal. IMPRESSION: Abdominal ultrasound: 1. Increased hepatic echotexture, may indicate steatosis. 2. Otherwise, unremarkable upper abdominal ultrasound. OB pelvic ultrasound: 1. Intrauterine gestational age 13 weeks 5 days with heart rate 147 bpm. Recommend routine second trimester survey at the appropriate time. 2. Left ovarian cyst. Electronically signed by: Hawk Barry DO (03/05/2019 10:57 AM) [facility] Course & Med Decision Making Course & Med Decision Making Pertinent Labs and Imaging studies reviewed. (See chart for details) Evaluation of patient in ER showed 28-year-old female patient at 13 weeks of gestation with complaining of headache and upper abdominal pain and nausea. Patient had unremarkable physical exam and labs and ultrasound of gallbladder and OB. Patient felt better with IV fluid and Tylenol. Plan discharge patient home with diagnosis of acute sinusitis. Dragon Disclaimer Dragon Disclaimer This electronic medical record was generated, in whole or in part, using a voice recognition dictation system. Departure Departure Impression: Primary Impression: Acute sinusitis Additional Impressions: Abdominal pain during Headache Nausea Disposition: HOME, SELF-CARE (at 1123) Condition: IMPROVED Referrals: KAY COLON MD (PCP) Patient Instructions: Abdominal Pain During , Sinusitis Additional Instructions: Drink plenty of liquids Follow-up with your primary care physician in 3-5 days Return to ER if not getting better Take Tylenol as needed for headache Scripts Ondansetron Hcl (ZOFRAN) 4 Mg Tablet 1 TAB PO PRN Q6-8HRS for nausea, #12 TAB Prov: TRINA DEXTER MD 03/05/19 Amoxicillin (AMOXICILLIN) 500 Mg Capsule 1 CAP PO Q8HRS for infection, #21 CAP Prov: TRINA DEXTER MD 03/05/19 Problem Qualifiers Primary Impression: Acute sinusitis Sinusitis location: frontal Recurrence: non-recurrent Qualified Codes: J 01.10 - Acute frontal sinusitis, unspecified Additional Impressions: Abdominal pain during Trimester: first trimester Qualified Codes: O26.891 - Other specified related conditions, first trimester; R10.9 - Unspecified abdominal pain Headache Headache type: unspecified Headache chronicity pattern: acute headache Intractability: not intractable Qualified Codes: R51 - Headache TRINA DEXTER MD Mar 05, 2019 11:06
[2019-03-05] MEDS ORDERED: ACETAMINOPHEN 500 MG TABLET PO ONE (11:15)
[2019-03-05] MEDS ORDERED: ONDA4TAB7 PO (11:26)
[2019-03-05] MEDS ORDERED: AMOX500C PO (11:26)
[2019-03-05 12:00] VITALS: BP 104/61
== END 2019-03-05 12:44 | disposition home or self-care (01) ==
LOC: ER 08:38
DX: O26.891 Other specified pregnancy related conditions, first trimester (principal); J01.90 Acute sinusitis, unspecified; R10.9 Unspecified abdominal pain; R51 Headache; Z90.89 Acquired absence of other organs; Z3A.13 13 weeks gestation of pregnancy
CPT/HCPCS: 36415; 76705; 76801; 80053; 81001; 83690; 85025; 99285; J7030

== ENCOUNTER → 2019-05-04 | Outpatient (CLI) | payer OTHER ==
[~2019-05-04] MED LIST changes: +AMOX500C PO; +ONDA4TAB7 PO
--- NOTE | 2019-05-04 16:14 | RAD ---
EXAM: Obstetrics sonogram. HISTORY: Large for dates. TECHNIQUE: Sonographic imaging of a gravid uterus was performed. COMPARISON: None. FINDINGS: There is a single intrauterine fetus in cephalic presentation with a normal heart rate of 141 bpm. There is a three-vessel umbilical cord with normal insertion. There is body motion. The stomach, kidneys, spine, facial profile, heart and extremities are unremarkable. The right and left ventricle or outflow tracts and lateral ventricles are not well seen due to maternal body habitus. There is a normal amniotic fluid index measuring 11.8 cm. There is an anterior placenta without evidence of placenta previa. The cervix is closed and measures 5.7 cm in length. The biparietal diameter is 5.02 cm, corresponding with 21 weeks and 1 day. The heads are present is 19.69 cm, corresponding with 21 weeks and 6 days. The abdominal circumference is 18.0 cm, corresponding with 20 weeks and 6 days. The femoral length is 3.98 cm, corresponding with 22 weeks and 6 days. The estimated gestational age patient combined ultrasound measurements is 22 weeks and 1 day and the estimated due date is 09/06/2019. The estimated weight is 525 g. This corresponds with the 45th percentile for a gestational age of 20 weeks and 2 days based on LMP. IMPRESSION: 1. Single intrauterine fetus with a normal heart rate and gestational age based on ultrasound measurements of 22 weeks and 1 day. The estimated weight is at the 45th percentile for a gestational age of 22 weeks and 2 days based on LMP. 2. Suboptimal evaluation of the ventricle or outflow tracts and intracranial ventricles due to maternal body habitus. The remainder the anatomy survey is unremarkable. Electronically signed by: Varsha Jackson MD (05/04/2019 4:11 PM) [place] [id number]
== END | disposition home or self-care (01) ==
LOC: US 15:49
PROVIDERS: ATTEND Family Medicine
DX: O26.892 Other specified pregnancy related conditions, second trimester (principal); Z3A.22 22 weeks gestation of pregnancy
CPT/HCPCS: 76805

== ENCOUNTER 2019-09-01 05:59 | Inpatient (IN) | payer OTHER ==
[~2019-09-01] VITALS: Ht 188 cm; Wt 85.9 kg
[2019-09-01] MEDS ORDERED: BUTORPHANOL 2 MG/ML VIAL. IVP PRN (06:15)
[2019-09-01] MEDS ORDERED: LIDOCAINE 1% PF 30 ML VIAL. INJ PRN (06:15)
[2019-09-01] MEDS ORDERED: MAG HYDROX/ALUMINUM HYD/SIMETH 30 ML ORAL.SUSP PO PRN ×2 (06:15→13:15)
[2019-09-01] MEDS ORDERED: OXYTOCIN 30 UNIT/500 ML PREMIX 500 ML IV PRN ×3 (06:15→13:15)
[2019-09-01] MEDS ORDERED: TERBUTALINE 1 MG/ML VIAL. SQ PRN (06:15)
[2019-09-01] MEDS ORDERED: fentaNYL PF VIAL 100 MCG/2 ML VIAL IVP PRN (06:15)
[2019-09-01] MEDS ORDERED: ONDANSETRON PF 4 MG/2 ML VIAL. IVP PRN (06:15)
[2019-09-01] MEDS ORDERED: 0.9 % SODIUM CHLORIDE 10 ML DISP.SYRIN. IV PRN ×2 (06:15→13:15)
[2019-09-01] MEDS ORDERED: ACETAMINOPHEN 325 MG TABLET. PO PRN ×2 (06:15→13:15)
[2019-09-01] MEDS ORDERED: IBUPROFEN 400 MG TABLET. PO PRN (06:15)
[2019-09-01] MEDS: IV RINGERS,LACTATED 1000ML 1,000 ML IV SCH ×2 (07:08→15:31)
[2019-09-01 07:40] LABS: BASO # 0.1 x10^3/uL (0.0-0.2); BASO % 1 % (0-3); EOS # 0.1 x10^3/uL (0.0-0.7); EOS % 1 % (0-3); HEMATOCRIT 35.3 % (36.0-47.0); LYMPH % 23 % (24-48); MEAN CORPUSCULAR HEMOGLOBIN 30 pg (25-35); MEAN CORPUSCULAR HGB CONC 34 g/dL (31-37); MEAN CORPUSCULAR VOLUME 89 fL (79-100); MONO # 0.6 x10^3/uL (0.0-1.1); MONO % 6 % (0-9); NEUT % 69 % (31-73); PLATELET COUNT 216 x10^3/uL (140-400); RED BLOOD COUNT 3.99 x10^6/uL (3.50-5.40); RED CELL DISTRIBUTION WIDTH 14.1 % (11.5-14.5); WHITE BLOOD COUNT 8.8 x10^3/uL (4.0-11.0)
[2019-09-01 07:42] LABS: BILIRUBIN,URINE NEGATIVE (NEG); COLOR,URINE AMBER; NITRITE,URINE NEGATIVE (NEG); PROTEIN,URINE NEGATIVE (NEG-TRACE)
[2019-09-01 07:56] LABS: CLARITY,URINE HAZY
[2019-09-01 07:59] LABS: RBC,URINE OCC /HPF (0-2); WBC,URINE 20-40 /HPF (0-4)
[2019-09-01 08:00] LABS: BACTERIA,URINE MANY /HPF (0-FEW); SQUAMOUS EPITHELIAL CELL,UR MANY /LPF; YEAST,URINE PRESENT /HPF
--- NOTE | 2019-09-01 08:32 | PDOC1 ---
OB - History Hx of Present Care: Good Care Ultrasounds: Normal mid trimester US Medical Complications: None Past Family/Social History * Past Medical, Surgical, Family and Obstetric Histories reviewed from chart. Blood Type: O+ Rubella: Immune RPR/VDRL: Negative GBS Status: Negative HBsAG: Negative OB - Chief Complaint & HPI Date of Admission: Date of Admission: Sep 01, 2019 at 05:59 Chief Complaint/History : 4 Para: 3 Reason for admission: induction of labor Indication for induction: history of rapid labor Admission Nurse Assessment Rev: Yes OB - Admission Exam Physical Exam HEENT: Normal, Nasal Mucosa Normal, Oropharynx Normal, Moist Membranes, Fontanelles Normal Lungs: Clear, Equal Abdomen: Gravid Extremities: Normal Pulses, No tenderness or swelling Reflexes: Normal Cervical Dilatation: 2cm Effacement: 50% Station: -3 Membranes: Intact (AROM Clear) Amniotic Fluid: Clear Heart Rate: Normal Accelerations: Accelerations Present Decelerations: No decelerations Short Term Variability: Present Contractions on Admission: 6-10 Minutes Apart Intensity: Mild COLONKAY RENE MD Sep 01, 2019 08:31
[2019-09-01] MEDS ORDERED: MAGNESIUM HYDROXIDE 2,400 MG/30 ML ORAL.SUSP. PO PRN (13:15)
[2019-09-01] MEDS ORDERED: PHENYLEPH/MINERAL OIL/PETROLAT RECTAL OINTMENT TUBE. RC PRN (13:15)
[2019-09-01] MEDS ORDERED: BENZOCAINE 20% TOPICAL AEROSOL SPRAY 57GM CAN. TP PRN (13:15)
[2019-09-01] MEDS ORDERED: ZOLPIDEM 5 MG TABLET. PO PRN (13:15)
[2019-09-01] MEDS ORDERED: SIMETHICONE 80 MG TAB.CHEW PO PRN (13:15)
[2019-09-01] MEDS ORDERED: MMR per PROTOCOL. MC PRN (13:15)
[2019-09-01] MEDS ORDERED: TDaP (Adacel) per PROTOCOL. MC PRN (13:15)
[2019-09-01] MEDS ORDERED: HYDROcodone/APAP 5/325MG 1 TAB TABLET PO PRN ×2 (13:15)
[2019-09-01] MEDS ORDERED: HYDROCORTISONE 1% TOPICAL OINTMENT 30GM TUBE. TP PRN (13:15)
[2019-09-01] MEDS ORDERED: diphenhydrAMINE HCL 25 MG CAPSULE PO PRN (13:15)
--- NOTE | 2019-09-01 13:16 | OP ---
DATE OF SURGERY: 09/01/2019 DELIVERY NOTE CLINICAL COURSE: This patient is a 29-year-old female, , with an EDC of 09/04/2019, admitted for term induction due to history of rapid labors. She underwent Pitocin augmentation, had artificial rupture of membranes with clear liquids of 2 cm. She slowly progressed in labor, but dilated from 3 cm to complete in less than 15 minutes and had a precipitous delivery of a viable female . This was attended by the nurses. Placenta was subsequently delivered by myself, intact with 3-vessel cord noted. Uterus was firm with Pitocin and palpation. There was approximately 200 mL blood loss. Bilateral periurethral lacerations were noted and sutured with 3-0 chromic, 2 on the right and 1 on the left. There was good hemostasis. Mother and baby were in stable condition. There was no anesthesia in this delivery except for local for repair. KAY COLON MD DR: GWENDOLYN/tennille JOB#: [id number] / [id number]
[2019-09-01] MEDS: IBUPROFEN 400 MG TABLET. PO SCH ×2 (15:03→23:24)
[2019-09-01 16:20] VITALS: BP 106/59
[2019-09-01 20:00] VITALS: BP 102/51
[2019-09-02 01:12] VITALS: BP 99/52
[2019-09-02 04:39] LABS: BASO # 0.1 x10^3/uL (0.0-0.2); BASO % 1 % (0-3); EOS # 0.2 x10^3/uL (0.0-0.7); EOS % 2 % (0-3); HEMOGLOBIN 10.7 g/dL (12.0-15.5); LYMPH # 2.9 x10^3/uL (1.0-4.8); LYMPH % 24 % (24-48); MEAN CORPUSCULAR HEMOGLOBIN 30 pg (25-35); MEAN CORPUSCULAR HGB CONC 34 g/dL (31-37); MEAN CORPUSCULAR VOLUME 89 fL (79-100); MONO # 0.8 x10^3/uL (0.0-1.1); MONO % 6 % (0-9); NEUT # 8.4 x10^3/uL (1.8-7.7); NEUT % 68 % (31-73); PLATELET COUNT 203 x10^3/uL (140-400); RED BLOOD COUNT 3.59 x10^6/uL (3.50-5.40); RED CELL DISTRIBUTION WIDTH 14.3 % (11.5-14.5); WHITE BLOOD COUNT 12.4 x10^3/uL (4.0-11.0)
[2019-09-02 06:24] VITALS: BP 99/54
[2019-09-02] MEDS ORDERED: FERROUS SULFATE 325 MG TABLET. PO SCH (08:00)
[2019-09-02] MEDS ORDERED: MULTIVITAMIN with MINERAL TABLET. PO SCH (09:00)
[2019-09-02] MEDS: IBUPROFEN 400 MG TABLET. PO SCH (10:09)
[2019-09-02 12:15] VITALS: BP 112/67
--- NOTE | 2019-09-02 13:16 | PDOC3 ---
OB DISCHARGE SUMMARY DATE OF ADMISSION: 09/01/19 DATE OF DISCHARGE: 09/02/19 REASON FOR ADMISSION: Induction of labor PROCEDURES: None INTRAPARTUM PROCEDURES: Spontanous Vag Deliv DISCHARGE DIAGNOSIS: Term Delivered DISCHARGE INFORMATION: Activity (no sexual activity 6 weeks) HOSPITAL COURSE routine CONDITION AT DISCHARGE Stable KAY COLON MD Sep 02, 2019 13:16
[2019-09-02] MEDS ORDERED: IBUP-1060 PO (13:20)
[2019-09-02] MEDS ORDERED: FERR325T72 PO (13:20)
[2019-09-02] MEDS ORDERED: HYDR-2761 PO (13:20)
[2019-09-02 15:45] VITALS: BP 105/66
== END 2019-09-02 16:56 | disposition home or self-care (01) | DRG 807 ==
LOC: 3 SO LND 05:59 → 3 NORTH 15:56
PROVIDERS: ADMIT Family Medicine; ATTEND Family Medicine
PROC: 10E0XZZ Delivery of Products of Conception, External Approach (ICD-10-PCS; principal; 2019-09-01)
PROC: 0UQMXZZ Repair Vulva, External Approach (ICD-10-PCS; 2019-09-01)
PROC: 10907ZC Drainage of Amniotic Fluid, Therapeutic from Products of Conception, Via Natural or Artificial Opening (ICD-10-PCS; 2019-09-01)
PROC: 3E033VJ Introduction of Other Hormone into Peripheral Vein, Percutaneous Approach (ICD-10-PCS; 2019-09-01)
DX: O62.3 Precipitate labor (principal); Z37.0 Single live birth; O71.82 Other specified trauma to perineum and vulva; Z3A.39 39 weeks gestation of pregnancy
CPT/HCPCS: 36415; 81001; 85025; 86592; 86850; 86900; 86901; 87086; J2590; J3010; J3490; J7120; G0378